=== PATIENT | male | born 1995 | race Caucasian/White ===

== ENCOUNTER 2017-03-07 15:25 | Inpatient (IN) | payer MEDICAID, SELFPAY ==
[~2017-03-07] VITALS: Ht 165.1 cm; Wt 54.6 kg
[2017-03-07 16:34] LABS: MEAN CORPUSCULAR HEMOGLOBIN 32.1 pg (27.0-33.0); MEAN CORPUSCULAR VOLUME 91.8 fl (80.0-96.0); RED CELL DISTRIBUTION WIDTH 12.6 % (11.5-14.5); WHITE BLOOD COUNT 7.2 K/mm3 (4.0-10.0)
[2017-03-07 16:40] LABS: METHADONE URINE NEGATIVE (NEGATIVE)
[2017-03-07 16:49] LABS: ALBUMIN 4.8 GM/DL (3.2-5.2); ALBUMIN/GLOBULIN RATIO 1.55 (1.00-1.93); ALKALINE PHOSPHATASE 98 U/L (45-117); ALT/SGPT 22 U/L (12-78); ANION GAP 6 MEQ/L (8-16); AST/SGOT 20 U/L (15-37); BILIRUBIN,DIRECT 0.2 MG/DL (0.0-0.2); BILIRUBIN,TOTAL 0.6 MG/DL (0.2-1.0); BLOOD UREA NITROGEN 16 MG/DL (7-18); CALCIUM LEVEL 9.4 MG/DL (8.5-10.1); CARBON DIOXIDE LEVEL 27 MEQ/L (21-32); CHLORIDE LEVEL 108 MEQ/L (98-107); CREATININE FOR GFR 1.02 MG/DL (0.70-1.30); GLOMERULAR FILTRATION RATE > 60.0 (>60); GLUCOSE, FASTING 96 MG/DL (70-105); POTASSIUM SERUM 4.3 MEQ/L (3.5-5.1); SODIUM LEVEL 141 MEQ/L (136-145); TOTAL PROTEIN 7.9 GM/DL (6.4-8.2)
[2017-03-07] MEDS ORDERED: LORazepam 0.5 MG TAB PO ONE (23:45)
[2017-03-07] MEDS ORDERED: NICOTINE 21MG/24HR 1 EA TRANSDERMAL TD ONE (23:45)
[2017-03-08] MEDS: NICOTINE 21MG/24HR 1 EA TRANSDERMAL TD SCH (09:00)
[2017-03-08 16:47] VITALS: BP 132/85
[2017-03-08] MEDS ORDERED: MOM 30ML SUSPENSION UDC PO PRN (19:00)
[2017-03-08] MEDS ORDERED: MAALOX 30 ML SUSP *UDC PO PRN (19:00)
[2017-03-08] MEDS ORDERED: traZODone 50 MG TAB PO PRN (19:00)
[2017-03-08] MEDS ORDERED: OLANZapine ORAL DISINTEGRATING TAB 5MG PO PRN (19:00)
[2017-03-08] MEDS ORDERED: ACETAMINOPHEN TAB 650MG DOSE (2X325MG) PO PRN (19:00)
[2017-03-09 06:29] VITALS: BP 142/79
[2017-03-09] MEDS ORDERED: ALBUTEROL 90 MCG/ACT 8GM HFA INHALER INH PRN (08:45)
--- NOTE | 2017-03-09 08:51 | HPEPDOC ---
Medical History and Physical Date of Admission Mar 08, 2017 at 15:54 History and Physical PCP: [facility] ATTENDING: Dr. Antonio Simon HPI: 21yoM admitted to [facility] for impulse control disorder, being medically examined today. No acute medical complaints today. Denies any fevers, chills, weakness, fatigue, LANDRY, CP, SOB, cough, palpitations, abdominal pain, N/V/D or changes in bowel or bladder habits. PMHx: Impulse control disorder Substance use Self-mutilation Asthma PSHX: Tympanostomy tubes SOCHX: Resides in: [place] Marital Status: Single Kids: 1 Child Employment: Unemployed Tobacco use: One and a half pack per day ETOH: Denies Illicit Drugs: Marijuana daily, multiple times per day. IV Drug Use: Denies Tattoos done unprofessionally: 1 FAMHX: Mother: Alive, well Father: Alive, well Siblings: 2 brothers, 1 sisters Alive, Crohn's disease. One sister in infancy Children: Alive, well ROS: As noted in HPI, otherwise 11pt ROS of systems reviewed and remarkable only for burn lyon left forearm. PE: GEN: 21 yo M, appears stated age. Well-nourished, well developed. No acute distress. Alert and oriented x 3. Pleasant, interactive. HEENT: Normocephalic, atraumatic. Pupils are equal, round, and reactive to light. Extraocular movements are intact. No nystagmus appreciated. Sclera are nonicteric. Conjunctiva without injection. Nose midline. Nasal turbinates without bogginess. EACs both patent BL. TMs both visualized and sahu with good cone of light, no bulging or erythema. No facial asymmetry. Moist mucous membranes. Dentition fair. Pharynx pink and moist, no cobblestoning. Neck supple , trachea midline. No lymphadenopathy or thyromegaly appreciated. CHEST: Regular rate and rhythm, +S1, +S2 LUNGS: Clear to auscultation bilaterally. No wheezes, rales, or rhonchi. Breathing appears symmetric and easy. Patient is speaking in full sentences. No accessory muscle use. ABD: Round, soft, non-tender, non-distended. +Bowel sounds throughout. No rebound or guarding. No costovertebral angle tenderness. EXT: Pulses 2+ bilaterally dorsalis pedis and radial. No lower extremity edema appreciated. SKIN: [place], dry, warm. Capillary refill <2sec. No rashes. Several circular burn lyon are noted at the left forearm, mild erythema. No drainage. Patient states these were self-inflicted with a human resources benefits assistant. NEURO: Alert and oriented x 3. Cranial nerves III-XII are intact. No focal deficits appreciated. EKG: pending. A&P: 21yoM admitted to [facility] for impulse control disorder 1. Psych. Plan per Psychiatry. Obtain baseline EKG to assure the safety of psychiatric medications as they can prolong the QT interval. 2. Nicotine dependence. Patch available. 3. Self Inflicted burn lyon left forearm. No drainage, mild erythema. Apply Bactroban twice a day as needed. Trach dressing as needed. 4. Follow up with PCP on discharge. 5. Substance use. Per psychiatry. 6. Tattoo done unprofessionally. Patient declines HIV or hepatitis screening at this time. 7. History of asthma. Albuterol 2 puffs every 4 hours as needed. 8. Staff member Aman present throughout exam. Vital Signs Vital Signs Date Time Temp Pulse Resp B/P (MAP) Pulse Ox O2 Delivery O2 Flow Rate FiO2 03/09/17 06:29 98.1 58 16 142/79 (100) 03/08/17 16:47 97 Room Air Laboratory Data Labs 24H Item Value Date Time White Blood Count 7.2 K/mm3 03/07/17 1602 Red Blood Count 5.06 M/mm3 03/07/17 1602 Hemoglobin 16.2 g/dl 03/07/17 1602 Hematocrit 46.4 % 03/07/17 1602 Mean Corpuscular Volume 91.8 fl 03/07/17 1602 Mean Corpuscular Hemoglobin 32.1 pg 03/07/17 1602 Mean Corpuscular Hemoglobin Concent 35.0 g/dl 03/07/17 1602 Red Cell Distribution Width 12.6 % 03/07/17 1602 Platelet Count 196 k/mm3 03/07/17 1602 Sodium Level 141 MEQ/L 03/07/17 1602 Potassium Level 4.3 MEQ/L 03/07/17 1602 Chloride Level 108 MEQ/L H 03/07/17 1602 Carbon Dioxide Level 27 MEQ/L 03/07/17 1602 Anion Gap 6 MEQ/L L 03/07/17 1602 Blood Urea Nitrogen 16 MG/DL 03/07/17 1602 Creatinine 1.02 MG/DL 03/07/17 1602 Glomerular Filtration Rate > 60.0 03/07/17 1602 Fasting Glucose 96 MG/DL 03/07/17 1602 Calcium Level 9.4 MG/DL 03/07/17 1602 Total Bilirubin 0.6 MG/DL 03/07/17 1602 Direct Bilirubin 0.2 MG/DL 03/07/17 1602 Aspartate Amino Transf (AST/SGOT) 20 U/L 03/07/17 1602 Alanine Aminotransferase (ALT/SGPT) 22 U/L 03/07/17 1602 Alkaline Phosphatase 98 U/L 03/07/17 1602 Total Protein 7.9 GM/DL 03/07/17 1602 Albumin 4.8 GM/DL 03/07/17 1602 Albumin/Globulin Ratio 1.55 03/07/17 1602 Thyroid Stimulating Hormone (TSH) 1.580 uIU/ML 03/07/17 1602 Salicylates Level 2.4 MG/DL L 03/07/17 1602 Urine Opiates Screen NEGATIVE 03/07/17 1602 Urine Methadone Screen NEGATIVE 03/07/17 1602 Acetaminophen Level < 2.0 UG/ML L 03/07/17 1602 Urine Barbiturates Screen NEGATIVE 03/07/17 1602 Urine Phencyclidine Screen NEGATIVE 03/07/17 1602 Urine Amphetamines Screen NEGATIVE 03/07/17 1602 Urine Benzodiazepines Screen NEGATIVE 03/07/17 1602 Urine Cocaine Metabolite Screen NEGATIVE 03/07/17 1602 Urine Cannabinoids Screen POSITIVE H 03/07/17 1602 Ethyl Alcohol Level 0.003 % 03/07/17 1602 Home Medications No Active Prescriptions or Reported Meds Allergies Coded Allergies: ENVIROMENTAL (Verified Allergy, Unknown, 09/25/05) Mireya Dang Mar 09, 2017 08:51
[2017-03-09] MEDS: NICOTINE 21MG/24HR 1 EA TRANSDERMAL TD SCH (09:13)
[2017-03-09] MEDS: VENLAFAXINE **XR** 37.5 MG CAPSULE PO SCH (11:45)
[2017-03-09] MEDS: DIVALPROEX 250 MG TAB PO SCH ×2 (11:45→21:36)
[2017-03-09] MEDS: MUPIROCIN 2% OINT 22 GM TUBE TOP PRN (11:48)
--- NOTE | 2017-03-09 12:53 | MHHPE ---
DATE OF ADMISSION: 03/08/2017 LEGAL STATUS AT ADMISSION: 9.39 legal status. CHIEF COMPLAINT: "I have been feeling depressed and very angry". HISTORY OF PRESENT ILLNESS: 21-year-old male with history of attention deficit hyperactivity disorder and intermittent explosive disorder admitted to our unit on a 9.39 legal status. According to the chart, patient has been prone to lose control, getting very angry and has been making suicidal statements. Patient is living with his girlfriend and his [id number] daughter and also his stepdaughter. Patient admits that has been making threats of suicide and also has been angry with tendency to lose control lately. According to the chart, he has been making statements such as "the whole world needs to be killed". During the interview today, patient says that he gets depressed when he gets angry, that his anger, irritability and impulsivity builds up to a point that he loses control and then he has tendency to act out. At that point, he says that he loses control and is unable to think. He says that at times, he gets so angry that has blackouts and then is unable to remember what he had said or has done. Says that the last is very infrequent but has happened in the past. Then he becomes withdrawn, "I don't want to be around anybody". He says that the next day, his mood is "fine". Patient states that he cannot eat in the morning because "my stomach is tight". He describes his sleep as waking up very frequent and falling asleep late. He also reports that he has been trying to cope with the above using marijuana but he finds that he has to take it more often, so he is now using marijuana on a daily basis. During the interview today, patient is calm and cooperative. Patient says that he was at [facility] and was feeling "much better" and then he decided not to return. He says he thought he was doing well enough. He was placed on medication at that time. He does not remember the name of the medication. He also reports that he has been burning himself in order to cope with his anger. Says that when he gets so emotional, he can bring down the emotions and anger when he rodriguez himself. He also reports that he has obsession compulsive disorder (OCD) tendencies but seems that he has mild symptoms of obsessive compulsive disorder. He says that things need to be in certain order and he has to clean up things in certain ways. Says that his father probably has "OCD". There is no evidence of psychotic symptoms. No auditory or visual hallucinations or delusions during the interview. PAST MEDICAL HISTORY: Patient denies any acute medical problems. PAST PSYCHIATRIC HISTORY: Patient is being diagnosed of attention deficit hyperactivity disorder and intermittent explosive disorder. This is his first psychiatric admission. FAMILY HISTORY: Patient reports he has a cousin with bipolar disorder and that depression runs in his family. Says that his father probably has OCD and has had an alcohol problem and had to go to treatment. SUBSTANCE ABUSE HISTORY: Patient reports that he experimented with many drugs when he was younger but reports that he is not doing so now. He admits that he is using marijuana on a daily basis. SOCIAL HISTORY: Patient was raised by his mother. Reports that he was picked on by other children at school "because of my size". Patient states that he had hard time keeping focus due to attention deficit hyperactivity disorder, he had breathing problems. He dropped school at 9th grade. He repeated 9th grade twice and also 8th grade. Said that he has not been able to get his GED. Patient is under CPS investigation and they will come to see him in the unit. As far as support, says his mother and sister are his main support and is not sure if his girlfriend is supportive or not. REVIEW OF SYSTEMS: Constitutional: No weight loss, fever, chills, weakness or fatigue. HEENT: No visual loss, blurry vision, double vision or yellow sclera. No hearing loss, nasal congestion, runny nose or sore throat. Skin: No rash or itching. Cardiovascular: No chest pain, chest pressure, chest discomfort, palpitations or edema. Respiratory: No shortness of breath, cough or sputum. GI: No anorexia, nausea, vomiting or diarrhea. No abdominal pain or blood. : No burning or pain on urination. Neurological: No headache, dizziness, syncope, paralysis, ataxia, numbness or tingling. Musculoskeletal: No muscle back pain, joint pain or stiffness. Hematologic: No anemia, bleeding or bruising. Lymphatics: No history of a splenectomy. Endocrine: No reports of sweating, cold or heat intolerance. No polyuria or polydipsia. ALLERGIES: No history of asthma, hives, eczema or rhinitis. PHYSICAL EXAMINATION: As per physician business banking sales assistant. LABS AT ADMISSION: CBC is unremarkable. CMP within normal limits. TSH within normal limits. Urine drug screen (UDS) is positive for cannabis. Blood alcohol level is negative. MENTAL STATUS EXAMINATION: Patient is dressed in [facility]. Patient is cooperative during exam. Speech is soft and monotone. Has fair eye contact. Mood is anxious and depressed. Affect is restricted and labile. Patient is oriented to time, place, person and situation. Maintains attention and concentration correctly. Instant recovery and remote memory are intact. Though process are coherent, logical and goal directed. Patient does not have auditory or visual hallucinations. Patient does not have paranoid, presecretory, somatic, grandiose or taoist delusions. Patient admits suicidal ideation but denies homicidal thoughts. Judgment and insight are limited. DIAGNOSES: Ames I: Unspecified depressive disorder. Intermittent explosive disorder. Attention deficit hyperactivity disorder. Ames II: Deferred. Ames III: None acute. INITIAL TREATMENT PLAN: Patient was admitted in a 9.39 legal status. Complete history was obtained. With his permission, family will be contacted and data base will be expanded. His medication regimen will be reviewed and changed accordingly. He will be provided with protective environment. He will be treated with individual, group and milieu therapy. He will also receive supportive psychoeducation. Discharge planning will commence immediately. Length of stay will be between 7-10 days. Outpatient followup will be strongly recommended. The treatment plan will focus initially on depression, risk for suicide, poor impulse control and substance abuse.
[2017-03-09 18:13] VITALS: BP 122/63
[2017-03-09] MEDS: traZODone 50 MG TAB PO SCH (21:36)
[2017-03-10 06:32] VITALS: BP 124/67
--- NOTE | 2017-03-10 07:43 | ECGEPIP ---
Stationary ECG Study [facility] Test Date: 2017-03-09 Pat Name: JAMES GRIFFITH Department: Room: [place] [address] Gender: M Innersole Maker: SUKHJINDER : 1995 Requested By: Mireya Dnag Order Number: [id number] Reading MD: Tegan Ramos Measurements Intervals [place] Rate: 70 P: 71 CO: 135 QRS: 79 QRSD: 97 T: 57 QT: 354 QTc: 384 Interpretive Statements SINUS RHYTHM WITH SINUS ARRHYTHMIA RIGHT VENTRICULAR CONDUCTION DELAY NONSPECIFIC T-WAVE ABNORMALITY SIMILAR TO 08/24/12 Electronically Signed On 03-10-2017 7:43:52 EDT by Tegan Ramos
[2017-03-10] MEDS: VENLAFAXINE **XR** 37.5 MG CAPSULE PO SCH (08:17)
[2017-03-10] MEDS: MUPIROCIN 2% OINT 22 GM TUBE TOP PRN (08:17)
[2017-03-10] MEDS: DIVALPROEX 250 MG TAB PO SCH ×2 (08:17→21:50)
[2017-03-10] MEDS: NICOTINE 21MG/24HR 1 EA TRANSDERMAL TD SCH (08:18)
[2017-03-10 18:06] VITALS: BP 130/69
--- NOTE | 2017-03-10 18:27 | IPN ---
DATE: 03/10/2017 21-year-old male with history of Attention Deficit Hyperactive Disorder (ADHD) and intermittent explosive disorder admitted to our unit because of anger, impulse control and suicidal ideation. SUBJECTIVE: "I feel about the same." OBJECTIVE: Patient is tolerating well the medication and denies side effect. She was able to sleep better with the medication. No major changes from yesterday. No evidence of psychotic symptoms. MENTAL STATUS EXAMINATION: Patient is dressed in [facility]. Patient is cooperative during the exam. Has fair eye contact. Speech is normal in rate, volume and articulation. Mood is anxious, irritable. Affect is restricted. No delusions or hallucinations. Memory is fair. Patient is fully oriented. Associations are intact. Thinking is logical. Thought content is appropriate. Patient is able to contract for safety during his hospitalization. Denied suicidal or homicidal ideation during the interview. Insight and judgment is limited. ASSESSMENT: 1. Depression. 2. Poor impulse control. 3. Attention Deficit Hyperactive Disorder (ADHD). 4. Anger. PLAN: 1. Continue with trazodone 50 mg by mouth at bedtime. 2. Continue with Depakote 250 mg by mouth twice a day. 3. Continue with Effexor XR 37.5 mg by mouth every morning. 4. Continue close observation. 5. Continue medication management, individual and group therapy.
[2017-03-10] MEDS: traZODone 50 MG TAB PO SCH (21:50)
[2017-03-11 06:38] VITALS: BP 144/69
[2017-03-11] MEDS: NICOTINE 21MG/24HR 1 EA TRANSDERMAL TD SCH (08:13)
[2017-03-11] MEDS: DIVALPROEX 250 MG TAB PO SCH (08:13)
[2017-03-11] MEDS: VENLAFAXINE **XR** 37.5 MG CAPSULE PO SCH (08:13)
--- NOTE | 2017-03-11 15:43 | IPN ---
DATE: 03/11/2017 21-year-old male with history of attention deficit hyperactivity disorder (ADHD) , intermittent explosive disorder, and depression. Patient was admitted because of very poor impulse control, anger, and suicidal thoughts. SUBJECTIVE: "I think the medication is helping me." OBJECTIVE: Patient has improved somewhat from admission. Patient says that he has less mood swings and his interaction with other patients has improved. No evidence of agitation or aggressive behavior. Denies side effects from medication. No evidence of psychotic symptoms. MENTAL STATUS EXAMINATION: Patient is dressed in [facility]. Patient is cooperative, has fair eye contact. Speech is normal in rate, volume, and articulation. Mood is anxious and irritable. Affect is restricted. No delusions or hallucinations. Memory is fair. Patient is fully oriented. Associations are intact. Thinking is logical. Thought content is appropriate. Patient is able to contract for safety during his hospitalization. Insight and judgment is limited. ASSESSMENT: 1. Depression. 2. Poor impulse control. 3. Attention deficit hyperactivity disorder (ADHD). 4. Anger. PLAN: 1. Continue with trazodone 50 mg by mouth nightly. 2. Increase Effexor XR to 75 mg by mouth every morning. 3. Increase Depakote to 500 mg by mouth twice a day. 4. Continue close observation. 5. Continue medication management, individual and group therapy. MTDD
[2017-03-11 18:00] VITALS: BP 159/55
[2017-03-11] MEDS: traZODone 50 MG TAB PO SCH (21:50)
[2017-03-11] MEDS: DIVALPROEX 500 MG TAB PO SCH (21:50)
[2017-03-12 06:00] VITALS: BP 123/63
[2017-03-12] MEDS: VENLAFAXINE **XR** 75MG CAPSULE PO SCH (08:16)
[2017-03-12] MEDS: DIVALPROEX 500 MG TAB PO SCH ×2 (08:16→21:48)
[2017-03-12] MEDS: NICOTINE 21MG/24HR 1 EA TRANSDERMAL TD SCH (08:16)
[2017-03-12] MEDS: NICOTINE 14 MG/24 HR TRANSDERMAL TD SCH (09:43)
--- NOTE | 2017-03-12 15:35 | IPN ---
DATE: 03/12/2017 A 21-year-old male with a history of attention deficit hyperactivity disorder (ADHD), intermittent explosive disorder, and depression, admitted due to suicidal thoughts and very poor impulse control. SUBJECTIVE: "I'm feeling a little better." OBJECTIVE: Patient continues to improve slowly. Patient is denying side effect from the medication. He is sleeping better with help of trazodone. No evidence of psychosis. No agitation or behavioral disturbances. Patient is interacting well with other patients and staff. He is motivated for treatment. MENTAL STATUS EXAMINATION: Patient is dressed in [facility]. Patient is cooperative. Has good eye contact. Speech is normal in rate, volume, and articulation. Mood is anxious and irritable. Affect is restricted. No delusions or hallucinations. Memory is fair. Patient is fully oriented. Associations are intact. Thinking is logical. Thought content is appropriate. Patient is able to contract for safety during his hospitalization. Insight and judgment are limited. ASSESSMENT: 1. Depression. 2. Poor impulse control. 3. Attention deficit hyperactivity disorder. 4. Anger. PLAN: 1. Continue with Effexor XR 75 mg by mouth every morning. 2. Continue with Depakote 500 mg by mouth twice a day. 3. Continue with trazodone 50 mg by mouth at bedtime. 4. Continue medication management, individual and group therapy. 5. Will get a Depakote level and comprehensive metabolic panel (CMP) when patient is at steady state.
[2017-03-12 18:18] VITALS: BP 124/78
[2017-03-12] MEDS: traZODone 50 MG TAB PO SCH (21:48)
[2017-03-13 06:16] VITALS: BP 147/69
[2017-03-13] MEDS: NICOTINE 14 MG/24 HR TRANSDERMAL TD SCH (08:15)
[2017-03-13] MEDS: VENLAFAXINE **XR** 75MG CAPSULE PO SCH (08:15)
[2017-03-13] MEDS: DIVALPROEX 500 MG TAB PO SCH ×2 (08:15→22:31)
[2017-03-13 18:00] VITALS: BP 122/62
[2017-03-13] MEDS: traZODone 50 MG TAB PO SCH (22:31)
[2017-03-14 06:11] VITALS: BP_SYST 131; BP_SYST 143; BP_DIAS 67; BP_DIAS 86
[2017-03-14] MEDS: VENLAFAXINE **XR** 75MG CAPSULE PO SCH (08:11)
[2017-03-14] MEDS: NICOTINE 14 MG/24 HR TRANSDERMAL TD SCH (08:11)
[2017-03-14] MEDS: DIVALPROEX 500 MG TAB PO SCH ×2 (08:11→21:56)
[2017-03-14 18:29] VITALS: BP 123/64
[2017-03-14] MEDS: traZODone 50 MG TAB PO SCH (21:56)
[2017-03-15 06:45] VITALS: BP 121/70
[2017-03-15] MEDS: NICOTINE 14 MG/24 HR TRANSDERMAL TD SCH (08:06)
[2017-03-15] MEDS: DIVALPROEX 500 MG TAB PO SCH ×2 (08:06→21:16)
[2017-03-15] MEDS: VENLAFAXINE **XR** 75MG CAPSULE PO SCH (08:06)
[2017-03-15 18:03] VITALS: BP 134/70
--- NOTE | 2017-03-15 19:03 | IPN ---
DATE: 03/15/2017 21-year-old male with history of attention deficit/hyperactivity disorder (ADHD), intermittent explosive disorder, and depression admitted to our unit for suicidal ideation and poor impulse control. SUBJECTIVE: "I am feeling much better". OBJECTIVE: The patient continues improving. The patient states that he is able to control his anger. He is interacting with his peers well. No evidence of agitation or behavioral disturbances. No evidence of delusions, hallucinations or any psychotic symptoms. The patient is denying side effects from the medication. The patient is motivated for treatment. MENTAL STATUS EXAM: The patient dressed in [facility]. The patient is cooperative. Has fair eye contact. Speech is normal in rate, volume and articulation. He is coherent and his content is spontaneous. Mood is improved. Affect is also improved. No delusions or hallucinations. Memory, attention and concentration are fair. The patient is denying suicidal or homicidal ideation during the interview. Insight and judgment are fair. ASSESSMENT: 1. Depression. 2. Poor impulse control. 3. ADHD. 4. Anger. PLAN: 1. Continue with Effexor XR 75 mg by mouth every a.m.. 2. Continue with Depakote 500 mg by mouth twice a day 3. Continue trazodone 50 mg by mouth at bedtime 4. Continue medication management, individual and group therapy. 5. Will get a Depakote level and CMP tomorrow. 6. Will schedule a family meeting for Wednesday. Discharge process has started.
[2017-03-15] MEDS: traZODone 50 MG TAB PO SCH (22:29)
[2017-03-16 06:31] VITALS: BP 129/68
[2017-03-16 07:29] LABS: ALBUMIN 4.4 GM/DL (3.2-5.2); ALBUMIN/GLOBULIN RATIO 1.52 (1.00-1.93); ALKALINE PHOSPHATASE 99 U/L (45-117); ALT/SGPT 29 U/L (12-78); ANION GAP 8 MEQ/L (8-16); AST/SGOT 18 U/L (15-37); BILIRUBIN,TOTAL 1.3 MG/DL (0.2-1.0); BLOOD UREA NITROGEN 18 MG/DL (7-18); CALCIUM LEVEL 9.5 MG/DL (8.5-10.1); CARBON DIOXIDE LEVEL 26 MEQ/L (21-32); CHLORIDE LEVEL 106 MEQ/L (98-107); CREATININE FOR GFR 1.05 MG/DL (0.70-1.30); GLOMERULAR FILTRATION RATE > 60.0 (>60); GLUCOSE, FASTING 80 MG/DL (70-105); POTASSIUM SERUM 4.3 MEQ/L (3.5-5.1); SODIUM LEVEL 140 MEQ/L (136-145); TOTAL PROTEIN 7.3 GM/DL (6.4-8.2)
[2017-03-16] MEDS: DIVALPROEX 500 MG TAB PO SCH ×2 (08:05→21:07)
[2017-03-16] MEDS: VENLAFAXINE **XR** 75MG CAPSULE PO SCH (08:05)
[2017-03-16] MEDS: NICOTINE 14 MG/24 HR TRANSDERMAL TD SCH (08:05)
[2017-03-16 18:00] VITALS: BP 136/65
[2017-03-16] MEDS: traZODone 50 MG TAB PO SCH (21:07)
[2017-03-17 06:53] VITALS: BP 143/71
[2017-03-17] MEDS: VENLAFAXINE **XR** 75MG CAPSULE PO SCH (08:12)
[2017-03-17] MEDS: DIVALPROEX 500 MG TAB PO SCH (08:12)
[2017-03-17] MEDS: NICOTINE 14 MG/24 HR TRANSDERMAL TD SCH (08:13)
[2017-03-17] MEDS ORDERED: TRAZO50TA PO (08:46)
[2017-03-17] MEDS ORDERED: VENL75CA2 PO (08:46)
[2017-03-17] MEDS ORDERED: NICO7PA TD (08:46)
[2017-03-17] MEDS ORDERED: DEPA1TAB3 PO (08:46)
[2017-03-17] MEDS ORDERED: NICOTINE 7 MG/24 HR TRANSDERMAL TD SCH (09:00)
--- NOTE | 2017-03-18 10:51 | MHDS ---
DATE OF ADMISSION: 03/08/2017 DATE OF DISCHARGE: 03/17/2017 LEGAL STATUS AT ADMISSION: 9.39 legal status. HISTORY OF PRESENT ILLNESS: 21-year-old male with history of attention deficit hyperactivity disorder (ADHD), intermittent explosive disorder admitted to our unit on a 9.39 legal status. According to the chart, patient has been prone to lose control, getting very angry, and has been making suicidal statements. Patient is living with his girlfriend and his [id number]-lgh daughter and also his stepdaughter. Patient admits that he has been making threats of suicide and also has been angry with tendency to lose control. According to the chart, he has been making statements such as "the whole world needs to be killed." During the interview today, patient says that he gets depressed when he gets angry, that his anger, irritability, and impulsivity builds up to the point that he loses control and then he has tendency to act out. At that point, he says that he loses control and is unable to think. He says that, at times, he gets so angry that has blackouts and then he is unable to remember what he has said or done. Says that the last is very infrequent but has happened in the past. Then, he becomes withdrawn, "I don't want to be around anybody." He says that the next day, his mood is "fine." Patient states that he cannot eat in the morning because "my stomach is tight." He describes his sleep as waking up very frequent and falling asleep late. He also reports that he has been trying to cope with the above using marijuana, but he finds that he has to take it more often so he is now using marijuana on a daily basis. During the interview in our unit, the patient was calm and cooperative, said that [facility] ([facility] and was feeling "much better," but then he decided not to return. He also stopped taking the medication. He thought he was doing well enough. He could not remember the name of the medication. He also stated that he has been self inflicting rodriguez in order to cope with his anger. Says that when he gets so emotional, he can bring down the emotions and anger when he rodriguez himself. He also states that has tendency to display obsession-compulsive symptoms. Says that those are mild, like putting things in certain order or having to clean up things in certain ways. He states that his father was probably suffering from obsessive-compulsive disorder (OCD). During the interview, there is no evidence of psychotic symptoms. No auditory or visual hallucinations or delusions during the interview. LABS AT ADMISSION: His CBC was unremarkable. CMP within normal limits. TSH within normal limits. Urine drug screen (UDS) was positive for cannabis. Blood alcohol level was negative. HOSPITAL COURSE: After the first interview, patient was placed on Effexor XR 37.5 mg by mouth every morning and Depakote 250 mg by mouth twice a day. He also was started on trazodone 50 mg by mouth nightly. With the above medications, patient was stabilized. Patient had no complications during this hospital admission. Patient denies side effect from the medication. After a few days of treatment, patient started to improve slowly but steadily. He was motivate, and he was going to all psychotherapeutic activities of the unit. He became more insightful. He was stating that he was going to stop using marijuana, tobacco, and he was going to keep going to his appointments and take his medication. He discussed the problems with his mother and his girlfriend, and he decided that he is going to be living with his mother when he is discharged from our unit. On 03/17/2017, patient was re-evaluated in the morning. Patient is calm and cooperative. Patient is denying suicidal or homicidal ideation. Patient does not have auditory or visual hallucinations or delusions. Patient would like to continue his treatment as outpatient. Patient had a valproic level drawn on 03/16/2017 that was 87.3 with the dosage of 500 mg by mouth twice a day. Therefore, is discharged on 03/17/2017 in stable condition with no auditory or visual hallucinations, delusions, suicidal or homicidal ideation. MEDICATIONS AT DISCHARGE: - Effexor XR 75 mg by mouth every morning - Depakote 500 mg by mouth twice a day - trazodone 50 mg by mouth nightly DISCHARGE DIAGNOSES: [place]: Attention deficit hyperactivity disorder (ADHD), intermittent explosive disorder. Adjustment disorder with depressed and anxious mood, marijuana abuse. [place] II: Deferred. [place] III: None acute. MENTAL STATUS EXAMINATION AT DISCHARGE: Patient is dressed in [facility]. Patient is calm and cooperative. Speech is clear, coherent with normal rate and is spontaneous. Patient has good eye contact. Mood is euthymic. Affect is appropriate and congruent with mood. Patient is oriented to time, place, person, and situation. Maintains attention and concentration correctly. Instant recall, recent and remote memory are intact. Thought processes are coherent, logical, and goal directed. Patient does not have auditory or visual hallucination. Patient does not have paranoid, persecutory, somatic, grandiose, or uatsdin delusions. Patient denies suicidal or homicidal ideation. Judgment and insight are fair. CONDITION AT DISCHARGE: Stable. No auditory or visual hallucinations, no delusions. No suicidal or homicidal ideation. INSTRUCTIONS TO THE PATIENT: Patient is to continue taking his medications as prescribed and followup appointments. He is advised to maintain absolute sobriety from drugs and alcohol. Patient has scheduled appointment for psychotropic medication management, individual psychotherapy, and primary care physician.
== END 2017-03-17 11:45 | disposition home or self-care (01) | DRG 758 ==
LOC: M ED 18:11 → M ED INP 03-08 15:54 → M PSY 03-08 16:35
PROVIDERS: ADMIT Psychiatry & Neurology Psychiatry; ATTEND Psychiatry & Neurology Psychiatry
DX: F63.81 Intermittent explosive disorder (principal); R45.851 Suicidal ideations; J45.909 Unspecified asthma, uncomplicated; T22.011A Burn of unspecified degree of right forearm, initial encounter; F43.23 Adjustment disorder with mixed anxiety and depressed mood; F90.8 Attention-deficit hyperactivity disorder, other type; F12.10 Cannabis abuse, uncomplicated; Z79.899 Other long term (current) drug therapy; Z91.5 Personal history of self-harm; F17.210 Nicotine dependence, cigarettes, uncomplicated; Y92.9 Unspecified place or not applicable; Y93.89 Activity, other specified; Y99.9 Unspecified external cause status; X76.XXXA Intentional self-harm by smoke, fire and flames, initial encounter

== ENCOUNTER → 2017-04-09 | Outpatient (REF) | payer MEDICAID, SELFPAY ==
[~2017-04-09] MED LIST: DEPA1TAB3 PO; NICO7PA TD; TRAZO50TA PO; VENL75CA2 PO
[2017-04-09 11:38] LABS: BASO % 0.7 % (0.0-1.0); EOS # 0.2 K/mm3 (0.0-0.50); EOS % 3.7 % (0.0-3.0); LARGE UNSTAINED CELL # 0.2 K/mm3 (0.0-0.4); LARGE UNSTAINED CELL % 2.4 % (0.0-4.0); LYMPH # 2.6 K/mm3 (1.5-6.5); LYMPH % 35.4 % (24.0-44.0); MEAN CORPUSCULAR HEMOGLOBIN 32.5 pg (27.0-33.0); MEAN CORPUSCULAR HGB CONC 34.2 g/dl (32.0-36.5); MONO # 0.5 K/mm3 (0.0-0.8); MONO % 7.6 % (0.0-5.0); NEUTROPHILS # 3.4 K/mm3 (1.8-7.7); NEUTROPHILS % 50.1 % (36.0-66.0); PLATELET COUNT, AUTOMATED 157 k/mm3 (150-450); RED CELL DISTRIBUTION WIDTH 13.7 % (11.5-14.5); WHITE BLOOD COUNT 6.9 K/mm3 (4.0-10.0)
[2017-04-09 11:51] LABS: ALBUMIN 3.8 GM/DL (3.2-5.2); ALBUMIN/GLOBULIN RATIO 1.41 (1.00-1.93); ALKALINE PHOSPHATASE 90 U/L (45-117); ALT/SGPT 21 U/L (12-78); ANION GAP 9 MEQ/L (8-16); AST/SGOT 10 U/L (15-37); BILIRUBIN,TOTAL 0.2 MG/DL (0.2-1.0); BLOOD UREA NITROGEN 22 MG/DL (7-18); CALCIUM LEVEL 8.5 MG/DL (8.5-10.1); CARBON DIOXIDE LEVEL 27 MEQ/L (21-32); CHLORIDE LEVEL 103 MEQ/L (98-107); GLOMERULAR FILTRATION RATE > 60.0 (>60); GLUCOSE, FASTING 86 MG/DL (70-105); POTASSIUM SERUM 4.2 MEQ/L (3.5-5.1); SODIUM LEVEL 139 MEQ/L (136-145); TOTAL PROTEIN 6.5 GM/DL (6.4-8.2)
== END ==
LOC: M LABDRAW1 11:08
PROVIDERS: ATTEND Registered Nurse Psychiatric/Mental Health
DX: F63.81 Intermittent explosive disorder (principal)